=== PATIENT | female | born 1965 | race Caucasian/White ===

== ENCOUNTER 2020-07-21 19:53 | Emergency (ER) | payer BC, OTHER ==
[2020-07-21 20:35] VITALS: BP 124/75; PULSE 92; TEMP 98; BMI 22.8
== END 2020-07-21 21:27 | disposition left against medical advice (07) ==
LOC: JER 19:53
DX: R56.9 Unspecified convulsions (principal)
CPT/HCPCS: 71045-TC-FY; 99284-25